=== PATIENT | female | born 1950 | race Two or more races ===

== ENCOUNTER 2021-11-29 17:19 | Emergency (ER) | payer MEDICARE, MEDICAID ==
[~2021-11-29] VITALS: Ht 157.5 cm; Wt 104.5 kg
[2021-11-29 19:26] LABS: Basophils # (auto) 0 10 ^3/uL (0-0.2); Basophils % (auto) 0.8 % (0.0-2.0); Eosinophils # (auto) 0.2 10 ^3/uL (0-0.8); Eosinophils % (auto) 3.9 % (0.0-7.0); Hematocrit 41.5 % (36.0-46.0); Hemoglobin 13.4 g/dL (12.2-16.2); Lymphocytes # (auto) 1.7 10 ^3/uL (0.4-5.4); Lymphocytes % (auto) 28.5 % (10.0-50.0); Mean Corpuscular Hemoglobin 29.5 pg (28.0-32.0); Mean Corpuscular Hgb Conc. 32.3 g/dL (32.0-36.0); Mean Corpuscular Volume 91.2 fL (80.0-100.0); Monocytes # (auto) 0.5 10 ^3/uL (0-1.3); Monocytes % (auto) 7.7 % (0.0-12.0); Neutrophils # (auto) 3.5 10 ^3/uL (1.6-8.6); Neutrophils % (auto) 59.1 % (37.0-80.0); Red Blood Cells 4.55 10^6/uL (4.0-5.20); Red Cell Distribution Width 13.3 % (11.8-14.3); White Blood Cell 5.9 10^3/uL (4.4-10.8)
[2021-11-29 19:40] LABS: Albumin 3.4 g/dL (3.4-5.0); Potassium 4.4 mmol/L (3.5-5.1)
[2021-11-29 19:44] LABS: BUN/Creatinine Ratio 20.6; Bilirubin, Total 0.3 mg/dL (0.2-1.0); Total Protein 7.9 g/dL (6.4-8.2)
[2021-11-29] MEDS ORDERED: SENNA 8.6 MG TAB PO ONE (22:30)
[2021-11-29] MEDS ORDERED: DOCUSATE SOD 100 MG CAP PO ONE (22:30)
[2021-11-29] MEDS ORDERED: MILK OF MAGNESIA 30ML SUSP PO ONE (22:30)
[2021-11-29] MEDS ORDERED: FLEET ENEMA(ADULT) 135 ML PR ONE (22:30)
[2021-11-30 13:00] VITALS: BP 131/78
== END 2021-11-30 13:34 ==
LOC: EDBD 17:19 → ER 17:19
DX: K59.00 Constipation, unspecified (principal)
CPT/HCPCS: 36415; 71045; 74177; 80053; 83605; 84484; 85025; 93005